=== PATIENT | female | born 1960 | race Caucasian/White ===

== ENCOUNTER 2024-08-10 08:49 | Day surgery (SDC) | payer OTHER, MEDICARE ==
[2024-07-28 16:32] LABS: Specific Gravity 1.018 (1.005-1.030); Urine Bilirubin NEGATIVE (Negative); Urine Blood Negative (Negative); Urine Clarity Clear (Clear); Urine Color Light-Yellow (Yellow); Urine Glucose NEGATIVE (Negative); Urine Ketones NEGATIVE (Negative); Urine Microscopic Reflex YN NO UMIC; Urine Nitrite NEGATIVE (Negative); Urine Protein NEGATIVE (Negative); Urine Urobilinogen Normal (Normal); Urine pH 6.5 (5.0-7.0)
[2024-07-28 16:33] LABS: Absolute Eosinophils 0.1 K/uL (0-0.5); Absolute Neutrophil 5.3 K/uL (1.8-8.0); Basophils % 0.2 % (0-1.3); Eosinophils % 1.4 % (0-4.4); Hematocrit 38.8 % (36.0-45.0); Hemoglobin 13.3 g/dL (12.0-15.0); Lymphocytes % 23.9 % (15.3-44.8); MCH 35.8 pg (27.0-35.0); MCHC 34.3 g/dL (32.0-36.0); MCV 104.4 fL (80-100); MPV 9.5 fL (7.6-11.3); Monocytes % 11.4 % (3.3-12.3); Neutrophils % 63.1 % (41.7-73.7); Platelets 271 thou/uL (152-406); RBC Red Blood Cell Count 3.72 M/uL (3.86-4.86); Red Cell Distribution Width 12.5 % (12.1-15.2)
[2024-07-28 16:46] LABS: Anion Gap 7.4 mEq/L (5.0-15.0); Potassium 3.4 mEq/L (3.5-5.1)
--- NOTE | 2024-07-31 10:56 | EKG ---
Test Date: 2024-07-28 Test Time: 15:39:41 Concrete Hopper Operator: IRENA MEASUREMENT RESULTS: Intervals: Rate: 57 IN: 148 QRSD: 80 QT: 376 QTc: 365 Arminto: P: 82 IN: 148 QRS: 79 T: 77 INTERPRETIVE STATEMENTS: Sinus bradycardia with sinus arrhythmia Otherwise normal ECG Compared to ECG 07/06/2016 10:37:45 Sinus rhythm no longer present Electronically Signed On 07-31-24 10:50:34 CDT by Nithin Spring
[2024-08-10] MEDS: Ringers Lactate 1,000 ML IV ONE (09:05)
[2024-08-10] MEDS: SCOPOLAMINE HYDROBROMIDE PATCH TD ONE (09:15)
[2024-08-10] MEDS ORDERED: MIDAZOLAM HCL 2 MG/2 ML INJ ONE (10:20)
[2024-08-10] MEDS ORDERED: ROCURONIUM 50 MG/5 ML VIAL IV ONE ×2 (10:20→11:39)
[2024-08-10] MEDS ORDERED: FENTANYL CITR 250 MCG/5 ML ONE (10:20)
[2024-08-10] MEDS ORDERED: propofoL 200 MG/20 ML VIAL IV ONE (10:20)
[2024-08-10] MEDS ORDERED: SUGAMMADEX SODIUM 200 MG/2 ML VIAL IV ONE (10:21)
[2024-08-10] MEDS ORDERED: HYDROMORPHONE HCL 1 MG/ML INJ ONE (10:22)
[2024-08-10] MEDS: CEFAZOLIN SODIUM 2 GM/VIAL ONE (10:38)
[2024-08-10] MEDS: BUPIVACAINE 0.25% PF 30 ML VIAL ONE (11:02)
[2024-08-10] MEDS ORDERED: ONDANSETRON 4 MG/2 ML VIAL ONE (11:12)
[2024-08-10] MEDS ORDERED: dexAMETHasone 4 MG/ML VIAL ONE (11:12)
[2024-08-10] MEDS ORDERED: DIPHENHYDRAMINE 50 MG/ML VIAL ONE (11:12)
[2024-08-10] MEDS ORDERED: KETOROLAC 30 MG/ML INJ ONE (11:17)
[2024-08-10] MEDS ORDERED: Ringers Lactate 1,000 ML IV ONE (11:33)
[2024-08-10] MEDS ORDERED: HYDRALAZINE HCL 20 MG/ML VIAL ONE (11:36)
[2024-08-10] MEDS ORDERED: Mastisol Adhesive Liq ONE (12:17)
[2024-08-10] MEDS ORDERED: SUCCINYLCHOLINE 20 MG/ML (10 ML) IV ONE (13:47)
[2024-08-10] MEDS: ONDANSETRON 4 MG/2 ML VIAL ONE (13:57)
[2024-08-10 14:25] VITALS: BP 120/59; O2SAT 95
[2024-08-10] MEDS: PROMETHAZINE INJ 25 MG/ML AMP ONE (14:27)
[2024-08-10 15:36] VITALS: TEMP 97
--- NOTE | 2024-08-10 23:44 | OP ---
Date of Procedure: 08/10/2024 Surgeon: Brigitte Delatorre MD Clinical Trial Head: Divya Chavez Preoperative Diagnoses: Pelvic pain, endometrial polyps. 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 Procedures Performed: 1. Total laparoscopic hysterectomy, bilateral salpingo-oophorectomy, pelvic washings. 2. Endometriosis excision. 3. Left ureterolysis and cystoscopy. Estimated Blood Loss: 50. Specimens: Uterus, bilateral tubes and ovaries, and pelvic washings for cytology. Complications: No complications. Drains: No drains. Condition: Stable. Findings: Left lateral wall periureteric, uterosacral ligament area with significant endometriosis a nd scar. Left ureterolysis had to be performed in order for me to release the scar and then excise t he endometriosis. Very minimal endometriosis noted in the posterior cul-de-sac peritoneum, which was cauterized. Left ovary to the posterior broad ligament and distal left tube with endometriotic impl ants. All these were removed completely with resection. Appendix appeared to be unremarkable. Uppe r abdominal surfaces, liver, peritoneal surfaces unremarkable. No other implants were noted to be le ft behind. On cystoscopy, there was a tiny epithelial abnormality immediately to the left of the internal urethr al meatus. Plan to repeat a cystoscopy in 3 months and if it is still present, we will refer for bio psy. Indications: The patient is a 63-year-old with pelvic pain. Transvaginal ultrasound was performed. Endometrium appeared to be thin, but suspicious for endometrial masses. On hysteroscopy, endometria l polyps were noted that were significant and thick. Although endometrial pathology was difficult to obtain due to sampling difficulty with a stenotic cervix, offered the patient removal of polyps and re-sampling in the hospital with a cutting tool like MyoSure; or as the patient has pain and history of colonic polyps as well, risks of endometrial polyps and cancer have been reviewed. She had 2 prio r instances, in which polyps were removed within the last 10 years. Therefore, hysterectomy with rem oval of tubes and ovaries as well as investigation for pain at the same time was offered. Pelvic was hings in case there was malignancy to aid in staging was discussed. The patient understood that if t here is a malignancy detected, she will need a staging procedure by referral to a gynecological oncol ogist, and for lymph node sampling, and need a repeat surgery. She was consented and she was brought into the hospital. She is a smoker. Counseling for smoking cessation and complications with delaye d healing and infection were all reviewed with the patient. She had her preoperative re-consent with her by the side. Procedure In Detail: She was taken back to the OR. 2 g of Ancef was given. She was placed in a sup ine fashion on the operating table. General anesthesia was given. She was placed in dorsal lithotom y position using Girma stirrups. Abdomen, vulva, vagina, and perineum were prepped and draped in a s terile fashion. Jolly was placed to drain the bladder. Medium cup uterine manipulator was introduce d into the uterine canal after dilating the cervix to 16-Pakistani. This area was then draped. A 1 cm infraumbilical incision was made with the scalpel after injecting 0.25% Marcaine, which was used for local anesthetic and a TAP block for this case. Fascia was incised with the scalpel and peritoneum entered sharply. The stay sutures with 0 Vicryl w ere placed on both cut ends of the fascia. She was introduced and after adequate insufflation, si te of entry was checked and was unremarkable. A 5 left lower quadrant and a 10 suprapubic ports were each introduced under direct visualization. The patient was placed in Trendelenburg. Pelvic washin gs were done and the procedure started. Left ureterolysis: The peritoneum medial to the ureter between the ureter and the IP ligament was op ened up sharply. Then, dissection was performed along the peritoneum parallel to the ureter inferior ly towards the pelvis. Then, the periureteric sheath was from the peritoneum and a portion of the ureter was normal. Once the dissection was carried to take the ureter laterally, the retrope ritoneal scar of the periureteric sheath to the endometriotic deep infiltrating lesion was then sharp ly dissected. Cautery used as needed with bipolar. Then dissection was carried laterally, identifyi ng the internal vessels. Then, once the vessels were identified, the endometriosis was dissected med ially towards the uterosacral ligament, distally on the left side. The ureter was dissected laterall y and freed up at the level of the ureteric tunnel. Endometriosis excision: Endometriosis was excised from the peritoneum of the left lateral wall and h anded out as a specimen. Then, there was a deep infiltrating specimen at the distal uterosacral at t he level of the insertion to the upper vagina and the uterus. This was then excised separately with sharp dissection as well as with the LigaSure using bipolar energy. Once this entire area was excise d, this was handed out for permanent pathology. The endometriosis in the posterior cul-de-sac was ex cised and that was fulgurated as well as taken down the posterior peritoneum to expose the posterior cuff. No other identifiable implants were noted in this region. Endometriosis on the left posterior broad ligament was then opened up and dissected completely to sep arate it from the left lateral wall. As salpingo-oophorectomy was being performed, I used this oppor tunity to keep the endometriotic specimen, ovary, and tube together on the specimen side. The IP lig ament was taken down with the help of the bipolar LigaSure. The specimen was sent along with the uter ine specimen. Hysterectomy: Round ligament was opened up on the left side and a pedicle was created by opening the peritoneum on either sides. This was taken down with the help of the LigaSure. Then, the IP ligame nt was already taken down on the left side. Then, rest of the broad ligament anteriorly was opened u p. Anterior peritoneum brought down to the level of the anterior vaginal wall to raise a bladder fla p. Then, I dissected the bladder down on the anterior vaginal wall, exposing the cup. Vessels were then isolated. Posterior portion of the cup was also exposed with the prior dissection. The vessels were taken down with the help of the LigaSure, and the cardinal ligaments with the help of bipolar c urved tip and monopolar hook blade. On the opposite side, dissection was done to take down the round ligament first by creating a pedicle , opening the peritoneum on both sides with the help of the LigaSure. Then, the peritoneal dissectio n was carried parallel to the IP ligament. After identifying the ureter on the medial aspect, the di ssection between the ureter and the IP was done sharply. Then, the IP ligament was taken down with t he vessel sealer. The anterior broad ligament was opened up and connected to the bladder flap. Blad melodie was dissected inferiorly. Posteriorly, the peritoneum was taken down to the level of the left ut erosacral ligament. Here, the ureter was identified and the safeguarded, and dissected laterally. T hen, the rest of the uterosacral attachment was also taken down and vessels were taken down, followed by the cardinal ligaments. Circumferential colpotomy was performed with a monopolar hook blade, and the specimen detached and removed through the vagina. There was a bleeder at the level of the uterosacral pedicle, which was picked up with a curved tip bi polar and cauterized. There was excellent hemostasis. The vaginal cuff was then closed with 2 simpl e angle sutures with 0 PDS and 2 [id number] medial to each of them, and then a simple central 0 PDS suture. The cuff had excellent support and closure. I checked this vaginally as well and lin ed my glove. After thorough irrigation and suction was performed, then all the pedicles were checked for hemostasis. Jorden was sprayed on the lateral wall dissection. Bowel had significant diverticu la, but no evidence of any inflammation. Epiploicae on the right side had some bleeding due to holdi ng this for retraction, and hemostasis was secured with the bipolar. After thorough irrigation and suction was performed, and all the scar was cleared up, carefully leavi ng the Jorden in place, which was also spread on the cuff and the right lateral wall. Then the troca rs were removed after desufflating the gas. The She was removed. The patient was flattened out. Fascia was closed with 0 Vicryl suture in a [id number] fashion to appose the fascial connective tissue together, and then a simple 0 Vicryl stitch for the suprapubic connective tissue. The skin w as closed with the help of interrupted 4-0 Monocryl. Jolly was removed. Vaginal retractor was remov ed. Cystoscopy: 30-degree lens, normal saline, and a 17-Pakistani sheath were used for cystoscopy. Both ur eteric orifices were well visualized. There was good efflux from both sides. No evidence of any epi thelial abnormality in the bladder when checked on the trigone, dome, and lateral luis. On the left lateral wall, at the internal meatus was very tiny epithelial abnormality, appeared to be benign. T he bladder was drained after the cystoscope was removed. The patient was recovered from anesthesia. Instrument, needle, and sponge counts x3 were correct at the end of the case. EBL was 50. She will have followup in 1 week and 4 weeks. The patient is a smoker, so we will peer financial counselor her further on smo rowan cessation. She has all postop instructions. Cystoscopy to be performed in the office as a foll owup in 3 months for visualization of the lesion as dictated above. YVES Voice ID: [id number] Report ID: [id number]
== END 2024-08-10 15:20 | disposition home or self-care (01) ==
LOC: OR 08:49
PROVIDERS: ATTEND Obstetrics & Gynecology
PROC: 0UT24ZZ Resection of Bilateral Ovaries, Percutaneous Endoscopic Approach (ICD-10-PCS; 2024-08-10)
PROC: 0UT74ZZ Resection of Bilateral Fallopian Tubes, Percutaneous Endoscopic Approach (ICD-10-PCS; 2024-08-10)
PROC: 0WBF4ZZ Excision of Abdominal Wall, Percutaneous Endoscopic Approach (ICD-10-PCS; 2024-08-10)
PROC: 0TN74ZZ Release Left Ureter, Percutaneous Endoscopic Approach (ICD-10-PCS; 2024-08-10)
PROC: 0UT94ZZ Resection of Uterus, Percutaneous Endoscopic Approach (ICD-10-PCS; principal; 2024-08-10 10:30)
DX: N84.0 Polyp of corpus uteri (principal); R10.2 Pelvic and perineal pain; K66.0 Peritoneal adhesions (postprocedural) (postinfection); N88.8 Other specified noninflammatory disorders of cervix uteri
CPT/HCPCS: 36415; 80048; 81003; 85025; 86850; 86900; 86901; 88108; 88305; 88307; 93005; J0360; J1100; J1171; J1200; J2250; J2405; J2550; J2704; J3010; J7120